=== PATIENT | male | born 1990 | race Hispanic/Latino ===

== ENCOUNTER 2020-10-28 08:33 | Emergency (ER) | payer MEDICAID, OTHER | END 2020-10-28 09:24 | LOC: EDH 08:33 | DX: Z02.89 Encounter for other administrative examinations (principal); Z20.822 Contact with and (suspected) exposure to COVID-19; Z72.0 Tobacco use | CPT/HCPCS: 87426 ==

== ENCOUNTER 2023-01-20 08:46 | Emergency (ER) | payer OTHER ==
[~2023-01-20] VITALS: Ht 165.1 cm; Wt 106.6 kg
[~2023-01-20 08:46] MED LIST: CLIN-141 PO
[2023-01-20 09:28] LABS: BASOPHILS % (AUTO) 0.6 % (0.0-5.0); EOSINOPHILS % (AUTO) 1.3 % (0.0-8.0); HEMATOCRIT 46.1 % (42-54); LYMPHOCYTES % (AUTO) 21.9 % (21.0-51.0); MEAN CORPUSCULAR HEMOGLOBIN 31.6 pg (27.0-33.0); MEAN CORPUSCULAR HGB CONC 33.6 g/dL (32.0-36.0); MEAN CORPUSCULAR VOLUME 93.9 fL (79-99); NEUTROPHILS % (AUTO) 68.4 % (40.0-77.0); PLATELET COUNT (AUTO) 275 K/uL (130-400); RED BLOOD CELL COUNT(AUTO) 4.91 MIL/uL (4.50-6.20); RED CELL DISTRIBUTION WIDTH 13.6 % (11.0-15.5); WHITE BLOOD COUNT (AUTO) 11.2 K/uL (4.8-10.8)
[2023-01-20 09:43] LABS: ALBUMIN 3.8 g/dL (3.5-5.0); CREATININE 0.9 mg/dL (0.5-1.5); POTASSIUM 4.1 mmol/L (3.5-5.1); TOTAL PROTEIN, SERUM 7.7 g/dL (6.0-8.3)
[2023-01-20] MEDS ORDERED: LEVO750T39 PO (10:32)
[2023-01-20] MEDS ORDERED: ACETAMINOPHEN 500 MG TABLET ONE (10:33)
[2023-01-20] MEDS ORDERED: GUAI5LIQ13 PO (10:34)
[2023-01-20 11:07] VITALS: BP 128/78
== END 2023-01-20 11:18 | disposition home or self-care (01) ==
LOC: EDH 08:46
DX: J20.9 Acute bronchitis, unspecified (principal); R51.9 Headache, unspecified; I10 Essential (primary) hypertension; Z20.822 Contact with and (suspected) exposure to COVID-19; Z79.899 Other long term (current) drug therapy
CPT/HCPCS: 99284; 71046; 87635; 80053; 85025; 87880; 87804 ×2; 36415; C9803